=== PATIENT | male | born 1985 | race African-American/Black ===

== ENCOUNTER 2022-10-18 12:27 | Emergency (ER) | payer OTHER ==
[~2022-10-18] VITALS: Ht 180.3 cm; Wt 75.0 kg
[2022-10-18 12:39] VITALS: O2SAT 100
[2022-10-18] MEDS ORDERED: HYDROCODONE/ACETAMINOPHEN 5/325MG TABLET PO ONE (12:45)
[2022-10-18] MEDS ORDERED: IBUP-2029 MT (15:22)
[2022-10-18] MEDS ORDERED: HYDROCODONE/ACETAMINOPHEN 5/325MG TABLET PO NR (15:30)
[2022-10-18 16:04] VITALS: BP 124/81; PULSE 65; RESP 18; TEMP 97.9
== END 2022-10-18 16:05 | disposition home or self-care (01) ==
LOC: ER 12:27 → EDBD 12:27 → ER 16:05
DX: S80.12XA Contusion of left lower leg, initial encounter (principal); E11.9 Type 2 diabetes mellitus without complications; Z86.59 Personal history of other mental and behavioral disorders; W20.8XXA Other cause of strike by thrown, projected or falling object, initial encounter; Y93.89 Activity, other specified; Y92.89 Other specified places as the place of occurrence of the external cause; Y99.8 Other external cause status
CPT/HCPCS: 73610; 73620; 99284

== ENCOUNTER 2024-06-10 01:26 | Emergency (ER) | payer OTHER ==
[~2024-06-10] VITALS: Ht 170.2 cm; Wt 69.0 kg
[~2024-06-10 01:26] MED LIST: IBUP-2029 MT
[2024-06-10 01:28] VITALS: BP 121/75; PULSE 93; RESP 16; TEMP 36.5; O2SAT 98
[2024-06-10 02:07] LABS: BASOPHILS % 0.7 % (0.0-2.0); EOSINOPHILS % 2.1 % (0.0-5.0); HEMATOCRIT. 37.1 % (42.0-52.0); LYMPHOCYTES % 34.4 % (20.0-50.0); MEAN CORPUSCULAR HEMOGLOBIN 27.3 pg (28.0-32.0); MEAN CORPUSCULAR HGB CONC 32.2 g/dL (31.0-37.0); MEAN CORPUSCULAR VOLUME 84.8 fL (80.0-94.0); MONOCYTES % 7.6 % (2.0-8.0); NEUTROPHILS % 55.2 % (40.0-76.0); PLATELET 369 x1000/uL (130-400); RED BLOOD CELL COUNT 4.38 mill/uL (4.7-6.1); RED CELL DISTRIBUTION WIDTH 13.7 % (11.6-14.6); WHITE BLOOD COUNT 8.3 x1000/uL (4.5-11.0)
[2024-06-10 02:15] LABS: CHLORIDE 101 mEq/L (98-107); PARTIAL THROMBOPLASTIN TIME 27.1 sec (23.4-31.0); POTASSIUM 4.4 mEq/L (3.5-5.1); PROTHROMBIN TIME 10.5 sec (9.6-11.0); SODIUM 140 mEq/L (136-145)
[2024-06-10 02:16] LABS: CARBON DIOXIDE 30 mEq/L (21-32)
[2024-06-10 02:21] LABS: CREATININE 0.9 mg/dL (0.6-1.3); GLUCOSE 295 mg/dL (70-105); UREA NITROGEN BLOOD 15 mg/dL (9-23)
[2024-06-10 02:32] LABS: TROPONIN I HIGH SENSITIVITY < 4 ng/L (3.0-53)
[2024-06-10] MEDS: ACETAMINOPHEN 325MG TABLET PO ONE (02:40)
[2024-06-10] MEDS: SODIUM CHLORIDE 0.9% 1,000 ML IV ONE ×2 (02:40→04:49)
[2024-06-10 03:56] LABS: ETHANOL BLOOD < 10 mg/dL (<10)
== END 2024-06-10 07:23 | disposition home or self-care (01) ==
LOC: ER 01:26
DX: R55 Syncope and collapse (principal); E11.65 Type 2 diabetes mellitus with hyperglycemia; F20.9 Schizophrenia, unspecified
CPT/HCPCS: 80048; 80320; 83880; 85025; 85610; 85730; 84484; 36415; 71045; 70450; 93005; 96360; 96361; 99285; J7030; G0480